=== PATIENT | male | born 1935 | race African-American/Black ===

== ENCOUNTER 2018-05-31 06:05 | Day surgery (SDC) | payer MEDICARE, OTHER ==
[2018-05-28 08:54] VITALS: BMI 30.2
[~2018-05-31 06:05] MED LIST: BUPIVACAINE HCL/PF (5 MG/ML) 30 ML VIAL IJ ONE
[2018-05-31] MEDS ORDERED: PROPOFOL 20 ML ONE (07:52)
[2018-05-31] MEDS ORDERED: LIDOCAINE HCL/PF 2% SDV 5ML VIAL ONE (07:52)
[2018-05-31] MEDS ORDERED: SEVOFLURANE 250 ML BTL ONE (07:56)
[2018-05-31] MEDS ORDERED: ceFAZolin SODIUM 1 GM VIAL ONE (08:10)
[2018-05-31] MEDS ORDERED: ceFAZolin SODIUM 1 GM VIAL IVPB ONE (08:36)
[2018-05-31] MEDS ORDERED: BUPIVACAINE HCL/PF 0.5% (5MG/ML) 10 ML VIAL ONE (08:38)
[2018-05-31] MEDS ORDERED: oxyCODONE HCL 5 MG TABLET PO PRN (09:19)
[2018-05-31] MEDS ORDERED: ACETAMINOPHEN 325 MG TABLET (FP) PO PRN (09:19)
[2018-05-31] MEDS ORDERED: ONDANSETRON 4 MG/2 ML VIAL IVPUSH PRN (09:19)
[2018-05-31] MEDS ORDERED: LACTATED RINGERS SOLUTION 1,000 ML IV SCH (09:30)
[2018-05-31 11:06] VITALS: TEMP 97.4
[2018-05-31 11:14] VITALS: BP 137/81; PULSE 60
--- NOTE | 2018-05-31 11:25 | OP ---
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
--- NOTE | 2018-05-31 21:56 | OP ---
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 PROCEDURE: Excision of residual invasive mass of squamous cell carcinoma site on glans penis and penoplasty. ATTENDING: Naye Schwab MD ANESTHESIA: General. DESCRIPTION OF OPERATION: The patient has a previous history of a squamous carcinoma which was found on excision of a penile mass. The finding of squamous cell carcinoma requires that an excision of a wide incision of the area of the malignancy is required. The patient understands that there is a high risk of disfigurement of the penis. The patient also understands that there is a risk that if he does not treat the neoplasm, more radical surgery may be required at a later date. The patient understands the risks and benefits and signs an informed consent. Patient was brought in the operating room, placed in supine position on the operating room table. Anesthesia and preoperative antibiotics were administered. The area of the glans penis on the dorsal aspect of the glans is examined. A wide incision of the previous operative site is performed. The incision is taken to a depth of the corpus spongiosum in the glans penis. This area is sent to Pathology for evaluation. Flaps are then raised in the glans penis in order to allow for a more adequate closure without causing curvature of the penis and possible obstruction of the urethra. The relaxing incision with the flaps allowed for a 2-layer closure to be performed with minimal distortion of the glans penis. There was no angulation of the urethra noted. The patient tolerated the procedure very well. No complications were noted. Patient will follow up in the office as an outpatient to evaluate the pathologic report. NAYE SCHWAB M.D. [id number]
--- NOTE | 2018-06-15 08:04 | PATH ---
Surgical Pathology Report Patient Name: REED GOMES [facility]. Rec. #: [id number] /Age/Gender: 1935 (Age: 83) / M Account: [id number] Location: [facility] SURGICAL Taken: 05/31/2018 Received: 05/31/2018 Reported: 06/01/2018 Physicians: Charles Nolasco Specimen(s) Received PENILE BASE MASS Clinical History Squamous cell carcinoma of the penis Final Diagnosis PENILE BASE MASS, EXCISIONAL BIOPSY: SQUAMOUS CELL CARCINOMA IN SITU. CARCINOMA IN SITU PRESENT AT THE MARGIN. Report on HPV and P16 studies to follow. Intradepartmental case reviewed with consensus on diagnosis. This case was discussed with Dr. Nolasco on June 01, 2018. Electronically Signed Kaitlin Handy M.D. 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 Immunostain performed and interpreted on this specimen at [place], [place] ([id number]) showing the squamous cell carcinoma in situ is positive for HPV high risk [id number], 18, 31 and 33, and negative for low risk HPV subtypes 6/11. Kaitlin Handy M.D. Gross Description Received in formalin labeled "mass penile base," is a 0.8 x 0.5 cm pickering, irregular, unoriented skin shave. No discrete epidermal lesions are identified grossly. The margin is inked green and the specimen is trisected and entirely submitted in one cassette. saudi/05/31/2018
== END 2018-05-31 11:55 | disposition home or self-care (01) ==
LOC: JASU-SURG 06:05
PROVIDERS: ATTEND Urology
PROC: 0JBC0ZZ Excision of Pelvic Region Subcutaneous Tissue and Fascia, Open Approach (ICD-10-PCS; principal; 2018-05-31 08:00)
DX: D07.4 Carcinoma in situ of penis (principal); I12.9 Hypertensive chronic kidney disease with stage 1 through stage 4 chronic kidney disease, or unspecified chronic kidney disease; E11.22 Type 2 diabetes mellitus with diabetic chronic kidney disease; N18.9 Chronic kidney disease, unspecified
CPT/HCPCS: 82962; 88307-TC; 94760

== ENCOUNTER 2019-03-16 09:10 | Inpatient (IN) | payer MEDICARE, OTHER ==
--- NOTE | 2019-03-16 10:36 | PDOC ---
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 Pt presents today with multiple complaints: 1) Neck pain - which is located in the midline of the cervical spine, has been present for more than 1 month, associated with no trauma, unable to rate pain, is associated with a click/or sound when he turns his head 2) Tongue pain/difficulty swallowing/abnormal taste in his mouth - symptoms have been present for more than 1 week. He has limited his po intake as a result. He denies drooling. Per , he does not have his bottom dentures and thinks that his symptoms may be the result of not having his dentures. Pt tells me that he can not eat (for example, this morning he had 2 crackers and tea, last night, he had yam) 3) Epigastric/stomach pain: pt actually points to the lower chest as painful, unable to describe the type of pain, symptoms have been present for more than 1 week (according to ). Pt denies vomiting, Pt denies diarrhea. He can not think of anything that makes his symptoms better or worse. Pt tells me that he has seen his PMD for these symptoms, but can not seem to get to the bottom of them PMH: HTN, DM PSH: penile mass removal x 2, pt also had a urostomy bag??? Meds: please see MAR ALL: NkDA Social: denies alcohol, drug, cigarette use ROS: GENERAL/CONSTITUTIONAL: No: fever, chills HEAD, EYES, EARS, NOSE AND THROAT: Yes: oral/mouth pain No: change in vision, ear pain, discharge CARDIOVASCULAR: No: chest pain, lightheadedness, palpitations, syncope RESPIRATORY: No: cough, shortness of breath GASTROINTESTINAL: Yes: epigastric pain No: nausea, vomiting, diarrhea GENITOURINARY: No: dysuria, hematuria, frequency, urgency, flank pain. MUSCULOSKELETAL: Yes: cervical spine tenderness No: back pain SKIN AND BREASTS: No: lesions, pallor, rash or easy bruising. NEUROLOGIC: No: headache, vertigo ENDOCRINE: No: unexplained weight gain or loss HEMATOLOGIC/LYMPHATIC: No: anemia, easy bleeding, swelling nodes. PE: GENERAL: The patient is in no acute distress, very poor historian. HEAD: Normal . EYES: PERRLA, EOMI, sclera anicteric, conjunctiva clear. ENT: Ears normal, nares patent, oropharynx clear without exudates. Canker sores noted on bottom lip, Moist mucous membranes. NECK: Normal range of motion, supple LUNGS: Breath sounds equal, clear to auscultation bilaterally. No wheezes, and no crackles. HEART:Regular rate and rhythm, normal S1 and S2 without murmur, rub or gallop. ABDOMEN: Soft, nontender, normoactive bowel sounds. No guarding, no rebound. EXTREMITIES: Normal range of motion, no edema. NEUROLOGICAL: Cranial nerves II through XII grossly intact. Normal speech. No focal neurological deficits. MUSCULOSKELETAL: Back non-tender to palpation, no CVA tenderness SKIN: Warm, Dry, normal turgor, no rashes or lesions noted. 03/16/19 11:09 03/16/19 11:10 Past History - Past Medical History Allergies/Adverse Reactions: Allergies Allergy/AdvReac Type Severity Reaction Status Date / Time No Known Allergies Allergy Verified 03/16/19 09:18 Home Medications: Ambulatory Orders Amlodipine Besylate 10 mg PO DAILY 05/28/18 Carvedilol 25 mg PO DAILY 05/28/18 Clonidine HCl 0.1 mg PO DAILY 05/28/18 Hydralazine HCl 50 mg PO BID 05/28/18 Losartan Potassium 100 mg PO DAILY 05/28/18 Tamsulosin HCl 0.4 mg PO DAILY 05/28/18 COPD: No Diabetes: Yes (not taking Januvia as prescribed) Disorders: Yes (BPH) HTN: Yes - Immunization History Immunization Up to Date: (UNKNOWN) - Suicide/Smoking/Psychosocial Hx Smoking History: Never smoked Have you smoked in the past 12 months: No If you are a former smoker, when did you quit?: Many years ago Hx Alcohol Use: No Drug/Substance Use Hx: No Substance Use Type: None Hx Substance Use Treatment: No *Physical Exam - Vital Signs Last Vital Signs Temp Pulse Resp BP Pulse Ox 98.0 F 72 18 98/54 L 100 03/16/19 09:20 03/16/19 09:20 03/16/19 09:20 03/16/19 09:20 03/16/19 09:20 ED Treatment Course - LABORATORY CBC & Chemistry Diagram: 03/17/19 06:00 03/17/19 06:00 - RADIOLOGY Radiology Studies Ordered: Category Date Time Status ABDOMEN & PELVIS CT WITH CONTR [CT] Stat CT Scan 03/16/19 10:[address] W/O CONTR [CT] Stat CT Scan 03/16/19 10:35 Ordered Medical Decision Making - Medical Decision Making 03/16/19 11:19 Pt presents to the ER with 1) limited history 2) very poor historian Will do: Basic labs EKG CXR CT abd Pt blood pressure notably low (Despite h/o HTN and 4 anti hypertensive agents) Will hydrate EKG: NSR rate of 66 bpm, axis nml, intervals nml, no st elevation or depression, t waves upright 03/16/19 11:48 Laboratory Tests 03/16/19 03/16/19 03/16/19 10:35 10:49 10:50 WBC 11.6 H Hgb 11.5 L Hct 34.3 L Plt Count 176 Sodium 135 L Potassium 4.1 Chloride 103 Carbon Dioxide 25 BUN 24 H Creatinine 1.4 H Random Glucose 116 H Magnesium 2.6 H AST 12 L ALT 26 Creatine Kinase 141 Troponin I < 0.02 Total Amylase 500 H Lipase 436 H pancreatitis noted on labs Pt states he does not drink alcohol CT pending 03/16/19 14:32 CT demonstrates constipation, small bilateral pleural effusions Pt continues to have epigastric pain CT C spine: no fracture Case reviewed with Dr Gibson Will plan to admit Will continue IV hydration *DC/Admit/Observation/Transfer Diagnosis at time of Disposition: Pancreatitis Qualifiers: Chronicity: acute Pancreatitis type: other Acute pancreatitis complication: unspecified Qualified Code(s): K85.80 - Other acute pancreatitis without necrosis or infection - Discharge Dispostion Condition at time of disposition: Stable Decision to Admit order: Yes - Referrals - Patient Instructions - Post Discharge Activity
[2019-03-16] MEDS ORDERED: SODIUM CHLORIDE 1,000 ML IV STA (10:50)
[2019-03-16 11:07] LABS: BASO % 0.9 % (0-2.0); HEMATOCRIT 34.3 % (35.4-49); HEMOGLOBIN 11.5 GM/dL (11.7-16.9); LYMPH % 12.3 % (8-40); MCHC 33.4 g/dl (32.0-35.9); MEAN CELL VOLUME 95.9 fl (80-96); MEAN PLT VOLUME 8.9 fl (7.5-11.1); MONO % 10.7 % (3.8-10.2); NEUT % 73.1 % (42.8-82.8); PLATELET COUNT 176 K/MM3 (134-434); RBC 3.58 M/mm3 (4.00-5.60); RDW 12.9 % (11.9-15.9); WHITE BLOOD COUNT 11.6 K/mm3 (4.0-10.0)
[2019-03-16 11:34] LABS: AMYLASE 500 U/L (25-115); LIPASE 436 U/L (73-393)
[2019-03-16 11:38] LABS: ALBUMIN 3.4 g/dl (3.4-5.0); ALK PHOS 80 U/L (45-117); ANION GAP 7 MMOL/L (8-16); BILIRUBIN,TOTAL 0.5 mg/dL (0.2-1); BLOOD UREA NITROGEN 24 mg/dL (7-18); CALCIUM 8.2 mg/dL (8.5-10.1); CHLORIDE 103 mmol/L (98-107); CO2 25 mmol/L (21-32); CREATININE 1.4 mg/dL (0.55-1.3); GLUCOSE,RANDOM 116 mg/dL (74-106); MAGNESIUM 2.6 mg/dL (1.8-2.4); POTASSIUM 4.1 mmol/L (3.5-5.1); SGOT/AST 12 U/L (15-37); SGPT/ALT 26 U/L (13-61); SODIUM 135 mmol/L (136-145)
[2019-03-16] MEDS ORDERED: FAMOTIDINE 20 MG/50 ML IVPB 20 MG/50 ML MG IVPB ONE ×2 (14:29→14:57)
--- NOTE | 2019-03-16 15:38 | EKG ---
Test Reason : Blood Pressure : / mmHG Vent. Rate : 066 BPM Atrial Rate : 066 BPM P-R Int : 186 ms QRS Dur : 082 ms QT Int : 392 ms P-R-T Axes : 055 -24 023 degrees QTc Int : 410 ms NORMAL SINUS RHYTHM WITH SINUS ARRHYTHMIA NORMAL ECG NO PREVIOUS ECGS AVAILABLE Confirmed by TIM SOLER MD ([id number]) on 03/16/2019 3:37:39 PM Referred By: Confirmed By:TIM SOLER MD
[2019-03-16 15:56] VITALS: BMI 27.3
[2019-03-16] MEDS ORDERED: PNEUMOC 13-VAL CONJ-DIP CRM/PF 0.5 ML DISP.SYRIN IM ONE (15:56)
--- NOTE | 2019-03-16 19:56 | HP ---
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 Pt presents today with multiple complaints: 1) Neck pain - which is located in the midline of the cervical spine, has been present for more than 1 month, associated with no trauma, unable to rate pain, is associated with a click/or sound when he turns his head 2) Tongue pain/difficulty swallowing/abnormal taste in his mouth - symptoms have been present for more than 1 week. He has limited his po intake as a result. - Smoking History Smoking history: Former smoker Have you smoked in the past 12 months: No If you are a former smoker, when did you quit?: Many years ago - Alcohol/Substance Use Hx Alcohol Use: No Home Medications - Allergies Allergies/Adverse Reactions: Allergies Allergy/AdvReac Type Severity Reaction Status Date / Time No Known Allergies Allergy Verified 03/16/19 09:18 - Home Medications Home Medications: Ambulatory Orders Amlodipine Besylate 10 mg PO DAILY 05/28/18 Carvedilol 25 mg PO DAILY 05/28/18 Clonidine HCl 0.1 mg PO DAILY 05/28/18 Hydralazine HCl 50 mg PO BID 05/28/18 Losartan Potassium 100 mg PO DAILY 05/28/18 Tamsulosin HCl 0.4 mg PO DAILY 05/28/18 Physical Examination Vital Signs: Vital Signs Temperature 98.6 F 03/16/19 15:49 Pulse Rate 78 03/16/19 15:49 Respiratory Rate 16 03/16/19 15:49 Blood Pressure 128/83 03/16/19 15:49 O2 Sat by Pulse Oximetry (%) 99 03/16/19 17:18 Constitutional: Yes: No Distress HENT: Yes: Atraumatic Neck: Yes: Supple Cardiovascular: Yes: Regular Rate and Rhythm Respiratory: Yes: CTA Bilaterally Gastrointestinal: Yes: Normal Bowel Sounds Extremities: Yes: WNL Neurological: Yes: Alert, Oriented Labs: CBC, BMP 03/16/19 10:50 03/16/19 10:35 Imaging - Results X-ray: Report Reviewed Problem List - Problems (1) Pancreatitis Assessment/Plan: npo ivf Code(s): K85.90 - ACUTE PANCREATITIS WITHOUT NECROSIS OR INFECTION, UNSP Qualifiers: Chronicity: acute Pancreatitis type: other Acute pancreatitis complication: unspecified Qualified Code(s): K85.80 - Other acute pancreatitis without necrosis or infection Assessment/Plan Laboratory Tests 03/16/19 03/16/19 03/16/19 10:35 10:49 10:50 WBC 11.6 H RBC 3.58 L Hgb 11.5 L Hct 34.3 L MCV 95.9 MCH 32.0 MCHC 33.4 RDW 12.9 Plt Count 176 MPV 8.9 Absolute Neuts (auto) 8.5 H Neutrophils % 73.1 Lymphocytes % 12.3 Monocytes % 10.7 H Eosinophils % 3.0 Basophils % 0.9 Nucleated RBC % 0 Sodium 135 L Potassium 4.1 Chloride 103 Carbon Dioxide 25 Anion Gap 7 L BUN 24 H Creatinine 1.4 H Creat Clearance w eGFR 48.52 Random Glucose 116 H Calcium 8.2 L Magnesium 2.6 H Total Bilirubin 0.5 AST 12 L ALT 26 Alkaline Phosphatase 80 Creatine Kinase 141 Troponin I < 0.02 Total Protein 7.0 Albumin 3.4 Total Amylase 500 H Lipase 436 H Active Medications Generic Name Dose Route Start Last Admin Trade Name Freq PRN Reason Stop Dose Admin Amlodipine Besylate 10 mg 03/17/19 10:00 03/17/19 09:27 Norvasc - PO 10 mg DAILY [place] Administration Carvedilol 25 mg 03/17/19 10:00 03/17/19 09:28 Coreg - PO 25 mg DAILY [place] Administration Clonidine 0.1 mg 03/17/19 10:00 03/17/19 09:28 Catapres - PO 0.1 mg DAILY [place] Administration Heparin Sodium (Porcine) 5,000 unit 03/16/19 22:00 03/17/19 09:28 Heparin - SQ 5,000 unit BID [place] Administration Hydralazine HCl 50 mg 03/16/19 22:00 03/17/19 09:28 Apresoline - PO 50 mg BID [place] Administration Sodium Chloride 1,000 mls @ 75 mls/hr 03/16/19 20:00 03/16/19 21:15 Normal Saline - IV 75 mls/hr ASDIR [place] Administration Losartan Potassium 100 mg 03/17/19 10:00 03/17/19 09:27 Cozaar - PO 100 mg DAILY [place] Administration Nystatin 500,000 units 03/17/19 18:00 Nystatin Oral Suspension - PO 03/20/19 17:59 Q6HPO [place] Pantoprazole Sodium 40 mg 03/17/19 10:00 03/17/19 09:28 Protonix Iv IVPUSH 40 mg DAILY [place] Administration Tamsulosin HCl 0.4 mg 03/17/19 08:30 03/17/19 09:28 Flomax - PO 0.4 mg DAILY@0830 [place] Administration
[2019-03-16] MEDS: hydrALAZINE HCL 50 MG TABLET (FP) PO SCH (21:14)
[2019-03-16] MEDS: HEPARIN NA (PORCINE) 5,000 UNITS/ML 1ML VIAL SQ SCH (21:14)
[2019-03-16] MEDS: SODIUM CHLORIDE 1,000 ML IV SCH (21:15)
[2019-03-17 06:31] LABS: BASO % 0.8 % (0-2.0); EOS % 2.7 % (0-4.5); HEMATOCRIT 35.2 % (35.4-49); HEMOGLOBIN 11.8 GM/dL (11.7-16.9); LYMPH % 20.1 % (8-40); MCH 31.9 pg (25.7-33.7); MCHC 33.4 g/dl (32.0-35.9); MEAN CELL VOLUME 95.5 fl (80-96); MEAN PLT VOLUME 8.6 fl (7.5-11.1); MONO % 12.7 % (3.8-10.2); NEUT % 63.7 % (42.8-82.8); PLATELET COUNT 165 K/MM3 (134-434); RBC 3.69 M/mm3 (4.00-5.60); RDW 12.9 % (11.9-15.9)
[2019-03-17 07:05] LABS: ALK PHOS 74 U/L (45-117); AMYLASE 530 U/L (25-115); ANION GAP 7 MMOL/L (8-16); BILIRUBIN,TOTAL 0.5 mg/dL (0.2-1); BLOOD UREA NITROGEN 18 mg/dL (7-18); CALCIUM 8.1 mg/dL (8.5-10.1); CHLORIDE 109 mmol/L (98-107); CO2 25 mmol/L (21-32); CREATININE 1.2 mg/dL (0.55-1.3); GLUCOSE,RANDOM 86 mg/dL (74-106); LIPASE 340 U/L (73-393); POTASSIUM 4.3 mmol/L (3.5-5.1); SGOT/AST 14 U/L (15-37); SGPT/ALT 20 U/L (13-61); SODIUM 140 mmol/L (136-145); TOT PROT 6.3 g/dl (6.4-8.2)
[2019-03-17] MEDS: LOSARTAN POTASSIUM 50 MG TABLET (FP) PO SCH (09:27)
[2019-03-17] MEDS: amLODIPine BESYLATE 10 MG TABLET (FP) PO SCH (09:27)
[2019-03-17] MEDS: TAMSULOSIN HCL 0.4 MG CAP PO SCH (09:28)
[2019-03-17] MEDS: PANTOPRAZOLE SODIUM 40 MG VIAL IVPUSH SCH (09:28)
[2019-03-17] MEDS: HEPARIN NA (PORCINE) 5,000 UNITS/ML 1ML VIAL SQ SCH ×2 (09:28→22:09)
[2019-03-17] MEDS: hydrALAZINE HCL 50 MG TABLET (FP) PO SCH ×2 (09:28→22:09)
[2019-03-17] MEDS: CARVEDILOL 25 MG TABLET (FP) PO SCH (09:28)
[2019-03-17] MEDS: cloNIDine HCL 0.1 MG TABLET PO SCH (09:28)
--- NOTE | 2019-03-17 15:46 | CON.GI ---
Consult Consult Specialty:: GI Referred by:: Dr. Gibson Reason for Consultation:: Abdominal pain - History of Present Illness Chief Complaint: Patient points to lower chest/upper abdomen and states he has had pain there History of Present Illness: 84M admitted for evaluation of multiple pain complaints: neck, tongue, lower chest / upper abdomen. When I asked him why he was here, he pointed to his lower chest and said he has been having pain there for quite some time. He is very vague regarding his complaints. He denies constipation. There has been no reported rectal bleeding. He denies dysphagia/odynopjhagia. Amylas and lipase were nildly elevated on admission. He has been npo. - History Source History Provided By: Patient Limitations to Obtaining History: Poor Historian - Past Medical History Cardio/Vascular: Yes: HTN Renal/: Yes: Cancer (Penile cancer) Endocrine: Yes: Diabetes Mellitus - Past Surgical History Additional Surgical History: Prostate surgery, penile surgery - Alcohol/Substance Use Hx Alcohol Use: No History of Substance Use: reports: None - Smoking History Smoking history: Never smoked Have you smoked in the past 12 months: No If you are a former smoker, when did you quit?: Many years ago - Social History Usual Living Arrangement: With Spouse ADL: Independent Place of : Other ([place]) History of Recent Travel: No Home Medications - Allergies Allergies/Adverse Reactions: Allergies Allergy/AdvReac Type Severity Reaction Status Date / Time No Known Allergies Allergy Verified 03/16/19 09:18 - Home Medications Home Medications: Ambulatory Orders Amlodipine Besylate 10 mg PO DAILY 05/28/18 Carvedilol 25 mg PO DAILY 05/28/18 Clonidine HCl 0.1 mg PO DAILY 05/28/18 Hydralazine HCl 50 mg PO BID 05/28/18 Losartan Potassium 100 mg PO DAILY 05/28/18 Tamsulosin HCl 0.4 mg PO DAILY 05/28/18 Family Disease History - Family Disease History Other Family History: Patient vague about family history Review of Systems - Review of Systems Constitutional: denies: Fever HENT: reports: Other (Tongue pain) Cardiovascular: reports: Chest Pain (Lower) Gastrointestinal: reports: Abdominal Pain (upper). denies: Constipation, Diarrhea, Rectal Bleeding, Vomiting Physical Exam-GI Vital Signs: Vital Signs Temperature 98.5 F 03/17/19 15:00 Pulse Rate 72 03/17/19 15:00 Respiratory Rate 19 03/17/19 15:00 Blood Pressure 124/74 03/17/19 15:00 O2 Sat by Pulse Oximetry (%) 99 03/16/19 21:00 Constitutional: Yes: Calm Eyes: No: Sclera Icterus Neck: Yes: Other (white coating of tongue. Unable to visualize posterior oropharynx) Cardiovascular: Yes: Regular Rate and Rhythm, Murmur (2/6 systolic RSB) Respiratory: Yes: CTA Bilaterally Gastrointestinal Inspection: Yes: Scars (vertical suprapubic surgical scar) ...Auscultate: Yes: Normoactive Bowel Sounds ...Palpate: Yes: Soft. No: Guarding, Hepatomegaly, Splenomegaly, Tenderness ...Percussion: No: Tympanitic ...Rectal Exam: Yes: Other (No external lesions, no masses, copious light brown formed stool in rectal vault, guaiac negative) Edema: No (No LE edema) Neurological: Yes: Alert Labs: CBC, BMP 03/17/19 06:00 03/17/19 06:00 Hepatic Panel Total Bilirubin 0.5 mg/dL (0.2-1) 03/17/19 06:00 AST 14 U/L (15-37) L 03/17/19 06:00 ALT 20 U/L (13-61) 03/17/19 06:00 Alkaline Phosphatase 74 U/L (45-117) 03/17/19 06:00 Albumin 3.0 g/dl (3.4-5.0) L 03/17/19 06:00 Laboratory Tests 03/16/19 03/17/19 10:49 06:00 Total Amylase 500 H 530 H Lipase 436 H 340 Imaging - Results Cat Scan: Report Reviewed, Image Reviewed Problem List - Problems (1) Abdominal pain Assessment/Plan: Patient admitted with diagnosis of pancreatitis. Not typical pain location or description for pancreatitis. pain predominantly lower chest / upper abdomen and non-reproducible. Advise: Clear liquids UGIS series for AM Non contrast MRCP to evaluated elevated Amylase/Lipase Nystatin swish and swallow: ? oral daniel Obtain further records regarding recent evaluation at [facility] and any information patient's PMD may be able to give. Code(s): R10.9 - UNSPECIFIED ABDOMINAL PAIN
--- NOTE | 2019-03-17 17:28 | PN ---
Progress Note, Physician - Current Medication List Current Medications: Active Medications Amlodipine Besylate (Norvasc -) 10 mg PO DAILY [facility] Last Admin: 03/17/19 09:27 Dose: 10 mg Carvedilol (Coreg -) 25 mg PO DAILY [facility] Last Admin: 03/17/19 09:28 Dose: 25 mg Clonidine (Catapres -) 0.1 mg PO DAILY [facility] Last Admin: 03/17/19 09:28 Dose: 0.1 mg Heparin Sodium (Porcine) (Heparin -) 5,000 unit SQ BID [facility] Last Admin: 03/17/19 09:28 Dose: 5,000 unit Hydralazine HCl (Apresoline -) 50 mg PO BID [facility] Last Admin: 03/17/19 09:28 Dose: 50 mg Sodium Chloride (Normal Saline -) 1,000 mls @ 75 mls/hr IV ASDIR [facility] Last Admin: 03/16/19 21:15 Dose: 75 mls/hr Losartan Potassium (Cozaar -) 100 mg PO DAILY [facility] Last Admin: 03/17/19 09:27 Dose: 100 mg Nystatin (Nystatin Oral Suspension -) 500,000 units PO Q6HPO [facility] Stop: 03/20/19 17:59 Pantoprazole Sodium (Protonix Iv) 40 mg IVPUSH DAILY [facility] Last Admin: 03/17/19 09:28 Dose: 40 mg Tamsulosin HCl (Flomax -) 0.4 mg PO DAILY@0830 [facility] Last Admin: 03/17/19 09:28 Dose: 0.4 mg - Objective Vital Signs: Vital Signs Temperature 99 F 03/17/19 16:58 Pulse Rate 81 03/17/19 16:58 Respiratory Rate 20 03/17/19 16:58 Blood Pressure 111/70 03/17/19 16:58 O2 Sat by Pulse Oximetry (%) 99 03/16/19 21:00 Constitutional: Yes: No Distress HENT: Yes: Atraumatic Neck: Yes: Supple Cardiovascular: Yes: Regular Rate and Rhythm Respiratory: Yes: CTA Bilaterally Gastrointestinal: Yes: Normal Bowel Sounds Extremities: Yes: WNL Edema: No Peripheral Pulses WNL: Yes Neurological: Yes: Alert, Oriented Labs: CBC, BMP 03/17/19 06:00 03/17/19 06:00 Problem List - Problems (1) Pancreatitis Assessment/Plan: npo ivf Code(s): K85.90 - ACUTE PANCREATITIS WITHOUT NECROSIS OR INFECTION, UNSP Qualifiers: Chronicity: acute Pancreatitis type: other Acute pancreatitis complication: unspecified Qualified Code(s): K85.80 - Other acute pancreatitis without necrosis or infection
[2019-03-17] MEDS: NYSTATIN 500,000 UNITS/5 ML SUSPENSION PO SCH (17:30)
[2019-03-17] MEDS: SODIUM CHLORIDE 1,000 ML IV SCH (17:39)
[2019-03-18] MEDS: NYSTATIN 500,000 UNITS/5 ML SUSPENSION PO SCH ×5 (05:49→23:35)
--- NOTE | 2019-03-18 10:47 | PN.GI ---
GI Progress Note Subjective: No acute events Had MRI last night, UGIS this morning States feeling "Not too bad" - Objective Vital Signs: Vital Signs Temperature 98.1 F 03/18/19 06:00 Pulse Rate 83 03/18/19 06:00 Respiratory Rate 20 03/18/19 06:00 Blood Pressure 148/78 03/18/19 06:00 O2 Sat by Pulse Oximetry (%) 99 03/16/19 21:00 Constitutional: Calm Eyes: No: Sclera Icterus Cardiovascular: Yes: Regular Rate and Rhythm Respiratory: Yes: CTA Bilaterally Gastrointestinal Inspection: No: Distention ...Auscultate: Yes: Normoactive Bowel Sounds ...Palpate: Yes: Soft. No: Hepatomegaly, Splenomegaly, Tenderness ...Percussion: No: Tympanitic Edema: No (No LE edema) Labs: No labs ordered today Problem List - Problems (1) Abdominal pain Assessment/Plan: Clinically imporoved Follow-up MRCP and UGIS Repeat labs Advance diet Nystatin swish and swallow Code(s): R10.9 - UNSPECIFIED ABDOMINAL PAIN
[2019-03-18] MEDS: TAMSULOSIN HCL 0.4 MG CAP PO SCH (11:03)
[2019-03-18] MEDS: CARVEDILOL 25 MG TABLET (FP) PO SCH (11:03)
[2019-03-18] MEDS: amLODIPine BESYLATE 10 MG TABLET (FP) PO SCH (11:03)
[2019-03-18] MEDS: hydrALAZINE HCL 50 MG TABLET (FP) PO SCH ×2 (11:04→21:37)
[2019-03-18] MEDS: LOSARTAN POTASSIUM 50 MG TABLET (FP) PO SCH (11:04)
[2019-03-18] MEDS: HEPARIN NA (PORCINE) 5,000 UNITS/ML 1ML VIAL SQ SCH ×2 (11:04→21:37)
[2019-03-18] MEDS: cloNIDine HCL 0.1 MG TABLET PO SCH (11:09)
--- NOTE | 2019-03-18 11:15 | PN ---
Progress Note, Physician History of Present Illness: feeling better - Current Medication List Current Medications: Active Medications Amlodipine Besylate (Norvasc -) 10 mg PO DAILY [facility] Last Admin: 03/18/19 11:03 Dose: 10 mg Carvedilol (Coreg -) 25 mg PO DAILY [facility] Last Admin: 03/18/19 11:03 Dose: 25 mg Clonidine (Catapres -) 0.1 mg PO DAILY [facility] Last Admin: 03/18/19 11:09 Dose: 0.1 mg Heparin Sodium (Porcine) (Heparin -) 5,000 unit SQ BID [facility] Last Admin: 03/18/19 11:04 Dose: 5,000 unit Hydralazine HCl (Apresoline -) 50 mg PO BID [facility] Last Admin: 03/18/19 11:04 Dose: 50 mg Sodium Chloride (Normal Saline -) 1,000 mls @ 75 mls/hr IV ASDIR [facility] Last Admin: 03/17/19 17:39 Dose: 75 mls/hr Losartan Potassium (Cozaar -) 100 mg PO DAILY [facility] Last Admin: 03/18/19 11:04 Dose: 100 mg Nystatin (Nystatin Oral Suspension -) 500,000 units PO Q6HPO [facility] Stop: 03/20/19 17:59 Last Admin: 03/18/19 05:49 Dose: 500,000 units Pantoprazole Sodium (Protonix -) 20 mg PO DAILY [facility] Tamsulosin HCl (Flomax -) 0.4 mg PO DAILY@0830 [facility] Last Admin: 03/18/19 11:03 Dose: 0.4 mg - Objective Vital Signs: Vital Signs Temperature 98.1 F 03/18/19 06:00 Pulse Rate 83 03/18/19 06:00 Respiratory Rate 20 03/18/19 06:00 Blood Pressure 148/78 03/18/19 06:00 O2 Sat by Pulse Oximetry (%) 99 03/16/19 21:00 Constitutional: Yes: No Distress HENT: Yes: Atraumatic Neck: Yes: Supple Cardiovascular: Yes: Regular Rate and Rhythm Respiratory: Yes: CTA Bilaterally Gastrointestinal: Yes: Normal Bowel Sounds Extremities: Yes: WNL Edema: No Peripheral Pulses WNL: Yes Neurological: Yes: Alert, Oriented Labs: CBC, BMP 03/17/19 06:00 03/17/19 06:00 Problem List - Problems (1) Pancreatitis Assessment/Plan: on Na controlled diet fu enzymes in am Code(s): K85.90 - ACUTE PANCREATITIS WITHOUT NECROSIS OR INFECTION, UNSP Qualifiers: Chronicity: acute Pancreatitis type: other Acute pancreatitis complication: unspecified Qualified Code(s): K85.80 - Other acute pancreatitis without necrosis or infection
[2019-03-18 12:01] LABS: BASO % 0.9 % (0-2.0); EOS % 2.1 % (0-4.5); HEMOGLOBIN 12.8 GM/dL (11.7-16.9); LYMPH % 19.5 % (8-40); MCH 31.8 pg (25.7-33.7); MCHC 32.8 g/dl (32.0-35.9); MEAN PLT VOLUME 8.5 fl (7.5-11.1); MONO % 11.7 % (3.8-10.2); NEUT % 65.8 % (42.8-82.8); PLATELET COUNT 192 K/MM3 (134-434); RBC 4.02 M/mm3 (4.00-5.60); RDW 12.9 % (11.9-15.9); WHITE BLOOD COUNT 8.6 K/mm3 (4.0-10.0)
[2019-03-18] MEDS: SODIUM CHLORIDE 1,000 ML IV SCH ×3 (12:32→21:38)
[2019-03-18] MEDS: PANTOPRAZOLE SODIUM 40 MG VIAL IVPUSH SCH (12:32)
[2019-03-18 12:35] LABS: ALBUMIN 3.4 g/dl (3.4-5.0); ALK PHOS 84 U/L (45-117); ANION GAP 9 MMOL/L (8-16); BILIRUBIN,TOTAL 0.5 mg/dL (0.2-1); BLOOD UREA NITROGEN 15 mg/dL (7-18); CALCIUM 8.6 mg/dL (8.5-10.1); CHLORIDE 105 mmol/L (98-107); CO2 24 mmol/L (21-32); CREATININE 1.1 mg/dL (0.55-1.3); GLUCOSE,RANDOM 85 mg/dL (74-106); POTASSIUM 4.4 mmol/L (3.5-5.1); SGOT/AST 16 U/L (15-37); SGPT/ALT 23 U/L (13-61); SODIUM 138 mmol/L (136-145); TOT PROT 7.1 g/dl (6.4-8.2)
[2019-03-18 17:50] LABS: AMYLASE 645 U/L (25-115); LIPASE 272 U/L (73-393)
[2019-03-19] MEDS: SODIUM CHLORIDE 1,000 ML IV SCH ×2 (03:40→16:42)
[2019-03-19] MEDS: NYSTATIN 500,000 UNITS/5 ML SUSPENSION PO SCH ×3 (06:07→17:06)
[2019-03-19 06:25] LABS: BASO % 0.7 % (0-2.0); EOS % 2.4 % (0-4.5); HEMATOCRIT 35.8 % (35.4-49); HEMOGLOBIN 11.8 GM/dL (11.7-16.9); LYMPH % 23.6 % (8-40); MCH 31.6 pg (25.7-33.7); MEAN CELL VOLUME 95.6 fl (80-96); MEAN PLT VOLUME 8.4 fl (7.5-11.1); MONO % 12.8 % (3.8-10.2); NEUT % 60.5 % (42.8-82.8); PLATELET COUNT 191 K/MM3 (134-434); RBC 3.74 M/mm3 (4.00-5.60); RDW 12.8 % (11.9-15.9); WHITE BLOOD COUNT 8.3 K/mm3 (4.0-10.0)
[2019-03-19 06:52] LABS: ALK PHOS 77 U/L (45-117); AMYLASE 534 U/L (25-115); ANION GAP 10 MMOL/L (8-16); BILIRUBIN,TOTAL 0.4 mg/dL (0.2-1); BLOOD UREA NITROGEN 16 mg/dL (7-18); CALCIUM 8.1 mg/dL (8.5-10.1); CHLORIDE 107 mmol/L (98-107); CO2 23 mmol/L (21-32); CREATININE 1.1 mg/dL (0.55-1.3); GLUCOSE,RANDOM 87 mg/dL (74-106); LIPASE 411 U/L (73-393); POTASSIUM 3.8 mmol/L (3.5-5.1); SGOT/AST 21 U/L (15-37); SGPT/ALT 21 U/L (13-61); SODIUM 140 mmol/L (136-145); TOT PROT 6.3 g/dl (6.4-8.2)
[2019-03-19] MEDS: LOSARTAN POTASSIUM 50 MG TABLET (FP) PO SCH (09:38)
[2019-03-19] MEDS: CARVEDILOL 25 MG TABLET (FP) PO SCH (09:38)
[2019-03-19] MEDS: PANTOPRAZOLE 20 MG TABLET (FP) PO SCH (09:38)
[2019-03-19] MEDS: cloNIDine HCL 0.1 MG TABLET PO SCH (09:38)
[2019-03-19] MEDS: amLODIPine BESYLATE 10 MG TABLET (FP) PO SCH (09:39)
[2019-03-19] MEDS: hydrALAZINE HCL 50 MG TABLET (FP) PO SCH ×2 (09:39→21:37)
[2019-03-19] MEDS: HEPARIN NA (PORCINE) 5,000 UNITS/ML 1ML VIAL SQ SCH ×2 (09:39→21:38)
[2019-03-19] MEDS: TAMSULOSIN HCL 0.4 MG CAP PO SCH (09:39)
--- NOTE | 2019-03-19 13:21 | PN ---
Progress Note, Physician - Current Medication List Current Medications: Active Medications Amlodipine Besylate (Norvasc -) 10 mg PO DAILY [facility] Last Admin: 03/19/19 09:39 Dose: 10 mg Carvedilol (Coreg -) 25 mg PO DAILY [facility] Last Admin: 03/19/19 09:38 Dose: 25 mg Clonidine (Catapres -) 0.1 mg PO DAILY [facility] Last Admin: 03/19/19 09:38 Dose: 0.1 mg Heparin Sodium (Porcine) (Heparin -) 5,000 unit SQ BID [facility] Last Admin: 03/19/19 09:39 Dose: 5,000 unit Hydralazine HCl (Apresoline -) 50 mg PO BID [facility] Last Admin: 03/19/19 09:39 Dose: 50 mg Sodium Chloride (Normal Saline -) 1,000 mls @ 75 mls/hr IV ASDIR [facility] Last Admin: 03/19/19 03:40 Dose: 75 mls/hr Losartan Potassium (Cozaar -) 100 mg PO DAILY [facility] Last Admin: 03/19/19 09:38 Dose: 100 mg Nystatin (Nystatin Oral Suspension -) 500,000 units PO Q6HPO [facility] Stop: 03/20/19 17:59 Last Admin: 03/19/19 11:47 Dose: 500,000 units Pantoprazole Sodium (Protonix -) 20 mg PO DAILY [facility] Last Admin: 03/19/19 09:38 Dose: 20 mg Tamsulosin HCl (Flomax -) 0.4 mg PO DAILY@0830 [facility] Last Admin: 03/19/19 09:39 Dose: 0.4 mg - Objective Vital Signs: Vital Signs Temperature 98.3 F 03/19/19 10:00 Pulse Rate 76 03/19/19 10:00 Respiratory Rate 20 03/19/19 10:00 Blood Pressure 124/78 03/19/19 10:00 O2 Sat by Pulse Oximetry (%) 98 03/19/19 09:00 Constitutional: Yes: No Distress HENT: Yes: Atraumatic Neck: Yes: Supple Cardiovascular: Yes: Regular Rate and Rhythm Respiratory: Yes: CTA Bilaterally Gastrointestinal: Yes: Normal Bowel Sounds Extremities: Yes: WNL Edema: No Neurological: Yes: Alert, Oriented Labs: CBC, BMP 03/19/19 06:00 03/19/19 06:00 Problem List - Problems (1) Pancreatitis Assessment/Plan: on Na controlled diet fu enzymes in am Code(s): K85.90 - ACUTE PANCREATITIS WITHOUT NECROSIS OR INFECTION, UNSP Qualifiers: Chronicity: acute Pancreatitis type: other Acute pancreatitis complication: unspecified Qualified Code(s): K85.80 - Other acute pancreatitis without necrosis or infection
--- NOTE | 2019-03-19 14:01 | PN.GI ---
GI Progress Note Subjective: coverage for Dr Man tolerated diet, no nausea, no vomiting UGIS--c/w with reflux, no massess MRI -- no CBD stones, no pancreatic neoplasm CT-- fecal retention - Objective Vital Signs: Vital Signs Temperature 98.3 F 03/19/19 10:00 Pulse Rate 76 03/19/19 10:00 Respiratory Rate 20 03/19/19 10:00 Blood Pressure 124/78 03/19/19 10:00 O2 Sat by Pulse Oximetry (%) 98 03/19/19 09:00 Constitutional: Well Nourished Eyes: Yes: Conjunctiva Clear HENT: Yes: Atraumatic Neck: Yes: Supple Respiratory: Yes: CTA Bilaterally ...Auscultate: Yes: Normoactive Bowel Sounds ...Palpate: Yes: Soft. No: Firm/Rigid, Guarding, Hepatomegaly, Mass, Pulsatile Mass, Splenomegaly, Tenderness, Tenderness, Epigastium ...Percussion: Yes: Tympanitic Labs: CBC, BMP 03/19/19 06:00 03/19/19 06:00 Problem List - Problems (1) Abdominal pain Assessment/Plan: associated with elevated lipase etiology unclear R>Famotidine 40mg daily if pain is persistent will need EGD to r/o PUD, malignancy Code(s): R10.9 - UNSPECIFIED ABDOMINAL PAIN
[2019-03-19] MEDS ORDERED: POLYETHYLENE GLYCOL 3350 119 GM BTL PO ONE (14:02)
[2019-03-19] MEDS ORDERED: INSULIN (NOVOLOG) ASPART 100 UNITS/ML 10ML VIAL ONE (16:50)
[2019-03-19] MEDS: RANITIDINE HCL 150 MG TABLET (FP) PO SCH (21:37)
[2019-03-20] MEDS: NYSTATIN 500,000 UNITS/5 ML SUSPENSION PO SCH ×3 (00:18→11:36)
[2019-03-20] MEDS: SODIUM CHLORIDE 1,000 ML IV SCH (06:12)
[2019-03-20] MEDS: LOSARTAN POTASSIUM 50 MG TABLET (FP) PO SCH (09:18)
[2019-03-20] MEDS: RANITIDINE HCL 150 MG TABLET (FP) PO SCH ×2 (09:18→21:29)
[2019-03-20] MEDS: TAMSULOSIN HCL 0.4 MG CAP PO SCH (09:18)
[2019-03-20] MEDS: HEPARIN NA (PORCINE) 5,000 UNITS/ML 1ML VIAL SQ SCH ×2 (09:18→21:30)
[2019-03-20] MEDS: CARVEDILOL 25 MG TABLET (FP) PO SCH (09:18)
[2019-03-20] MEDS: amLODIPine BESYLATE 10 MG TABLET (FP) PO SCH (09:19)
[2019-03-20] MEDS: cloNIDine HCL 0.1 MG TABLET PO SCH (09:19)
[2019-03-20] MEDS: hydrALAZINE HCL 50 MG TABLET (FP) PO SCH ×2 (09:19→21:29)
[2019-03-20] MEDS: PANTOPRAZOLE 20 MG TABLET (FP) PO SCH (09:19)
--- NOTE | 2019-03-20 21:45 | PN ---
Progress Note, Physician History of Present Illness: Pt tolerating diet - Current Medication List Current Medications: Active Medications Amlodipine Besylate (Norvasc -) 10 mg PO DAILY [facility] Last Admin: 03/20/19 09:19 Dose: 10 mg Carvedilol (Coreg -) 25 mg PO DAILY [facility] Last Admin: 03/20/19 09:18 Dose: 25 mg Clonidine (Catapres -) 0.1 mg PO DAILY [facility] Last Admin: 03/20/19 09:19 Dose: 0.1 mg Heparin Sodium (Porcine) (Heparin -) 5,000 unit SQ BID [facility] Last Admin: 03/20/19 21:30 Dose: 5,000 unit Hydralazine HCl (Apresoline -) 50 mg PO BID [facility] Last Admin: 03/20/19 21:29 Dose: 50 mg Losartan Potassium (Cozaar -) 100 mg PO DAILY [facility] Last Admin: 03/20/19 09:18 Dose: 100 mg Pantoprazole Sodium (Protonix -) 20 mg PO DAILY [facility] Last Admin: 03/20/19 09:19 Dose: 20 mg Ranitidine HCl (Zantac -) 150 mg PO BID [facility] Last Admin: 03/20/19 21:29 Dose: 150 mg Tamsulosin HCl (Flomax -) 0.4 mg PO DAILY@0830 [facility] Last Admin: 03/20/19 09:18 Dose: 0.4 mg - Objective Vital Signs: Vital Signs Temperature 98 F 03/20/19 10:00 Pulse Rate 78 03/20/19 10:00 Respiratory Rate 18 03/20/19 10:00 Blood Pressure 112/58 L 03/20/19 10:00 O2 Sat by Pulse Oximetry (%) 98 03/20/19 09:00 Constitutional: Yes: No Distress Neck: Yes: WNL, Supple Cardiovascular: Yes: WNL, Regular Rate and Rhythm Respiratory: Yes: WNL, Regular, CTA Bilaterally Gastrointestinal: Yes: WNL, Normal Bowel Sounds, Soft Edema: No Labs: CBC, BMP 03/19/19 06:00 03/19/19 06:00 Problem List - Problems (1) Pancreatitis Assessment/Plan: Tolerating diet Check labs in am Code(s): K85.90 - ACUTE PANCREATITIS WITHOUT NECROSIS OR INFECTION, UNSP Qualifiers: Chronicity: acute Pancreatitis type: other Acute pancreatitis complication: unspecified Qualified Code(s): K85.80 - Other acute pancreatitis without necrosis or infection (2) HTN (hypertension) Assessment/Plan: BP stable Cont antihypertensives Code(s): I10 - ESSENTIAL (PRIMARY) HYPERTENSION (3) BPH (benign prostatic hyperplasia) Code(s): N40.0 - BENIGN PROSTATIC HYPERPLASIA WITHOUT LOWER URINRY TRACT SYMP
[2019-03-21 08:18] LABS: ALBUMIN 3.4 g/dl (3.4-5.0); ALK PHOS 84 U/L (45-117); AMYLASE 321 U/L (25-115); ANION GAP 11 MMOL/L (8-16); BILIRUBIN,TOTAL 0.2 mg/dL (0.2-1); BLOOD UREA NITROGEN 16 mg/dL (7-18); CALCIUM 8.6 mg/dL (8.5-10.1); CHLORIDE 103 mmol/L (98-107); CO2 25 mmol/L (21-32); CREATININE 1.3 mg/dL (0.55-1.3); GLUCOSE,RANDOM 109 mg/dL (74-106); LIPASE 664 U/L (73-393); POTASSIUM 3.9 mmol/L (3.5-5.1); SGOT/AST 42 U/L (15-37); SGPT/ALT 51 U/L (13-61); SODIUM 139 mmol/L (136-145); TOT PROT 7.1 g/dl (6.4-8.2)
[2019-03-21] MEDS: TAMSULOSIN HCL 0.4 MG CAP PO SCH (08:44)
[2019-03-21] MEDS: cloNIDine HCL 0.1 MG TABLET PO SCH (09:57)
[2019-03-21] MEDS: CARVEDILOL 25 MG TABLET (FP) PO SCH (09:57)
[2019-03-21] MEDS: LOSARTAN POTASSIUM 50 MG TABLET (FP) PO SCH (09:57)
[2019-03-21] MEDS: hydrALAZINE HCL 50 MG TABLET (FP) PO SCH ×2 (09:57→22:12)
[2019-03-21] MEDS: RANITIDINE HCL 150 MG TABLET (FP) PO SCH ×2 (09:58→22:12)
[2019-03-21] MEDS: amLODIPine BESYLATE 10 MG TABLET (FP) PO SCH (09:59)
[2019-03-21] MEDS: PANTOPRAZOLE 20 MG TABLET (FP) PO SCH (09:59)
[2019-03-21] MEDS: HEPARIN NA (PORCINE) 5,000 UNITS/ML 1ML VIAL SQ SCH ×2 (10:00→22:12)
--- NOTE | 2019-03-21 12:06 | PN ---
Progress Note (short form) - Note Progress Note: Patient seen and examined labs reviewed Sitting up in bed, tolerating PO Denies abdominal pain today! Imaging reviewed No clear etiology for abdominal pain, but seems to have resolved Can continue famotidine
--- NOTE | 2019-03-21 17:34 | PN ---
Progress Note, Physician History of Present Illness: feeling better - Current Medication List Current Medications: Active Medications Amlodipine Besylate (Norvasc -) 10 mg PO DAILY [facility] Last Admin: 03/21/19 09:59 Dose: 10 mg Carvedilol (Coreg -) 25 mg PO DAILY [facility] Last Admin: 03/21/19 09:57 Dose: 25 mg Clonidine (Catapres -) 0.1 mg PO DAILY [facility] Last Admin: 03/21/19 09:57 Dose: 0.1 mg Heparin Sodium (Porcine) (Heparin -) 5,000 unit SQ BID [facility] Last Admin: 03/21/19 10:00 Dose: 5,000 unit Hydralazine HCl (Apresoline -) 50 mg PO BID [facility] Last Admin: 03/21/19 09:57 Dose: 50 mg Losartan Potassium (Cozaar -) 100 mg PO DAILY [facility] Last Admin: 03/21/19 09:57 Dose: 100 mg Pantoprazole Sodium (Protonix -) 20 mg PO DAILY [facility] Last Admin: 03/21/19 09:59 Dose: 20 mg Ranitidine HCl (Zantac -) 150 mg PO BID [facility] Last Admin: 03/21/19 09:58 Dose: 150 mg Tamsulosin HCl (Flomax -) 0.4 mg PO DAILY@0830 [facility] Last Admin: 03/21/19 08:44 Dose: 0.4 mg - Objective Vital Signs: Vital Signs Temperature 98.0 F 03/21/19 14:04 Pulse Rate 60 03/21/19 14:04 Respiratory Rate 18 03/21/19 14:04 Blood Pressure 106/63 03/21/19 14:04 O2 Sat by Pulse Oximetry (%) 98 03/21/19 09:00 Constitutional: Yes: No Distress HENT: Yes: Atraumatic Neck: Yes: Supple Cardiovascular: Yes: Regular Rate and Rhythm Respiratory: Yes: CTA Bilaterally Gastrointestinal: Yes: Normal Bowel Sounds Extremities: Yes: WNL Edema: No Neurological: Yes: Alert, Oriented Labs: CBC, BMP 03/19/19 06:00 03/21/19 06:30 Problem List - Problems (1) Pancreatitis Assessment/Plan: on Na controlled diet fu enzymes in am...elevated Code(s): K85.90 - ACUTE PANCREATITIS WITHOUT NECROSIS OR INFECTION, UNSP Qualifiers: Chronicity: acute Pancreatitis type: other Acute pancreatitis complication: unspecified Qualified Code(s): K85.80 - Other acute pancreatitis without necrosis or infection
[2019-03-22 08:50] LABS: AMYLASE 282 U/L (25-115); LIPASE 492 U/L (73-393)
[2019-03-22] MEDS: TAMSULOSIN HCL 0.4 MG CAP PO SCH (09:55)
[2019-03-22] MEDS: CARVEDILOL 25 MG TABLET (FP) PO SCH (09:55)
[2019-03-22] MEDS: LOSARTAN POTASSIUM 50 MG TABLET (FP) PO SCH (09:55)
[2019-03-22] MEDS: amLODIPine BESYLATE 10 MG TABLET (FP) PO SCH (09:56)
[2019-03-22] MEDS: RANITIDINE HCL 150 MG TABLET (FP) PO SCH (09:56)
[2019-03-22] MEDS: HEPARIN NA (PORCINE) 5,000 UNITS/ML 1ML VIAL SQ SCH (09:56)
[2019-03-22] MEDS: PANTOPRAZOLE 20 MG TABLET (FP) PO SCH (09:56)
[2019-03-22] MEDS: hydrALAZINE HCL 50 MG TABLET (FP) PO SCH (09:56)
[2019-03-22] MEDS: cloNIDine HCL 0.1 MG TABLET PO SCH (09:57)
--- NOTE | 2019-03-22 17:06 | DS ---
Physical Examination Vital Signs: Vital Signs Temperature 96.7 F L 03/22/19 15:11 Pulse Rate 69 03/22/19 15:11 Respiratory Rate 18 03/22/19 15:11 Blood Pressure 111/72 03/22/19 15:11 O2 Sat by Pulse Oximetry (%) 98 03/22/19 09:00 Constitutional: Yes: No Distress HENT: Yes: Atraumatic Neck: Yes: Supple Cardiovascular: Yes: Regular Rate and Rhythm Respiratory: Yes: CTA Bilaterally Gastrointestinal: Yes: Normal Bowel Sounds Extremities: Yes: WNL Edema: No Peripheral Pulses WNL: Yes Neurological: Yes: Alert, Oriented Labs: CBC, BMP 03/19/19 06:00 03/21/19 06:30 Discharge Summary Reason For Visit: PANCREATITIS Current Active Problems Abdominal pain (Acute) BPH (benign prostatic hyperplasia) (Acute) HTN (hypertension) (Acute) Pancreatitis (Acute) Condition: Stable - Instructions Diet, Activity, Other Instructions: FOLLOW UP WITH GI DOCTOR DR YESSY DEE IN 2 WEEKS Referrals: Rupesh Dee DO [Staff Physician] - Paula Snyder DO [Staff Physician] - - Home Medications Comprehensive Discharge Medication List: Ambulatory Orders Amlodipine Besylate 10 mg PO DAILY 05/28/18 Carvedilol 25 mg PO DAILY 05/28/18 Clonidine HCl 0.1 mg PO DAILY 05/28/18 Hydralazine HCl 50 mg PO BID 05/28/18 Losartan Potassium 100 mg PO DAILY 05/28/18 Tamsulosin HCl 0.4 mg PO DAILY 05/28/18 protonix 20 po daily pr home fu gi as out patient
[2019-03-22 17:08] VITALS: BP 137/82; PULSE 61; TEMP 98.1
--- NOTE | 2019-03-22 18:01 | PN.GI ---
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 and otherwise unrevealing MRI revealed renal cysts and was otherwise unrevealing - Objective Vital Signs: Vital Signs Temperature 98.1 F 03/22/19 17:06 Pulse Rate 61 03/22/19 17:06 Respiratory Rate 18 03/22/19 17:06 Blood Pressure 137/82 03/22/19 17:06 O2 Sat by Pulse Oximetry (%) 98 03/22/19 09:00 Constitutional: Calm Eyes: No: Sclera Icterus HENT: Yes: Other (Improved appearance of white coated tongue) Cardiovascular: Yes: Regular Rate and Rhythm Respiratory: Yes: CTA Bilaterally Gastrointestinal Inspection: No: Distention ...Auscultate: Yes: Normoactive Bowel Sounds ...Palpate: No: Tenderness Edema: No (No LE edema) Neurological: Yes: Alert Labs: CBC, BMP 03/19/19 06:00 03/21/19 06:30 Problem List - Problems (1) Abdominal pain Assessment/Plan: Resolved: tolerating PO currently Continue Protonix 20mg once daily Gave Mr. Mckee my card and advised that he follow-up in office in 2 weeks Code(s): R10.9 - UNSPECIFIED ABDOMINAL PAIN
== END 2019-03-22 18:42 | disposition home or self-care (01) | DRG 439 ==
LOC: JER 09:10 → JERBED 14:40 → J8W 15:26 → OBSVTOIN 19:56
PROVIDERS: ADMIT Internal Medicine; ATTEND Internal Medicine
DX: K85.80 Other acute pancreatitis without necrosis or infection (principal); B37.0 Candidal stomatitis; J90 Pleural effusion, not elsewhere classified; I10 Essential (primary) hypertension; E11.9 Type 2 diabetes mellitus without complications; R10.9 Unspecified abdominal pain; K59.00 Constipation, unspecified; N40.0 Benign prostatic hyperplasia without lower urinary tract symptoms; N28.1 Cyst of kidney, acquired; K14.6 Glossodynia; M54.2 Cervicalgia; Z85.89 Personal history of malignant neoplasm of other organs and systems
CPT/HCPCS: 36415; 71045-TC-FY; 72125-TC; 74176-TC; 74181-TC; 74240-TC-FY; 80053; 82150; 82550; 82962; 83690; 83735; 84484; 85025; 86593; 93005; 93010; 99282-25; G0378; J0735; J1644; J7030

== ENCOUNTER 2020-10-25 10:48 | Inpatient (IN) | payer MEDICARE, OTHER ==
[2020-10-25] MEDS ORDERED: LACTATED RINGERS SOLUTION 1,000 ML IV STA ×2 (11:30)
[2020-10-25 12:33] LABS: BASO % 0.9 % (0-2.0); EOS % 0.6 % (0-4.5); HEMATOCRIT 38.3 % (35.4-49); HEMOGLOBIN 12.5 GM/dL (11.7-16.9); LYMPH % 13.5 % (8-40); MCHC 32.7 g/dl (32.0-35.9); MEAN CELL VOLUME 98.1 fl (80-96); MEAN PLT VOLUME 9.1 fl (7.5-11.1); MONO % 11.1 % (3.8-10.2); NEUT % 73.9 % (42.8-82.8); PLATELET COUNT 189 K/MM3 (134-434); RBC 3.91 M/mm3 (4.00-5.60); RDW 13.6 % (11.9-15.9); WHITE BLOOD COUNT 7.8 K/mm3 (4.0-10.0)
[2020-10-25 12:39] LABS: VENOUS BASE EXCESS -1.6 mmol/L (-2-2); VENOUS O2 SATURATION 37.6 % (70-80); VENOUS PCO2 41.6 mmHg (38-52); VENOUS PH 7.372 (7.310-7.410)
[2020-10-25 12:47] LABS: INR 1.03 (0.83-1.09); PROTHROMBIN TIME (PATIENT) 12.5 SEC (9.7-13.0)
[2020-10-25 12:50] LABS: ACTIVATED PTT 27.5 SECONDS (25.2-36.5)
[2020-10-25 12:57] LABS: CHLORIDE 103 mmol/L (98-107); SODIUM 135 mmol/L (136-145)
[2020-10-25 12:59] LABS: CALCIUM 8.1 mg/dL (8.5-10.1)
[2020-10-25 13:00] LABS: ANION GAP 10 MMOL/L (8-16); BLOOD UREA NITROGEN 45.8 mg/dL (7-18); CO2 22 mmol/L (21-32); GLUCOSE,RANDOM 101 mg/dL (74-106)
[2020-10-25 13:02] LABS: BILIRUBIN,DIRECT 0.8 mg/dL (0.0-0.2)
[2020-10-25 13:03] LABS: CREATININE 1.9 mg/dL (0.55-1.3); SGOT/AST 61 U/L (15-37); SGPT/ALT 79 U/L (13-61)
[2020-10-25 13:04] LABS: BILIRUBIN,TOTAL 1.5 mg/dL (0.2-1)
[2020-10-25 13:06] LABS: ALK PHOS 65 U/L (45-117)
[2020-10-25] MEDS ORDERED: ENOXAPARIN NA (PORCINE) 40 MG/0.4 ML DISP.SYRIN SQ ONE ×2 (13:14→13:33)
[2020-10-25 15:07] LABS: LDH 401 U/L (87-246)
[2020-10-25] MEDS ORDERED: DEXAMETHASONE SOD PHOSPHATE 10 MG/1 ML VIAL IVPUSH ONE (16:34)
[2020-10-25] MEDS ORDERED: DEXAMETHASONE SOD PHOSPHATE 4 MG/1 ML VIAL ONE (16:38)
[2020-10-25] MEDS: CEFTRIAXONE 1 GM in DEXTROSE 5%-WATER - 50 ML IVPB SCH (17:05)
[2020-10-25] MEDS ORDERED: AZITHROMYCIN IVPB 500 MG/250 ML BAG IVPB ONE (17:09)
[2020-10-25] MEDS ORDERED: CEFTRIAXONE 1 GM/50 ML BAG ONE (17:09)
[2020-10-25] MEDS: AZITHROMYCIN IVPB 500 MG/250 ML BAG IVPB SCH (17:19)
[2020-10-25 17:38] LABS: EPI CELLS 6 /uL (0-25.1); HYALINE CASTS 0 /uL (0-3.1); URINE APPEARANCE CLEAR; URINE BACTERIA 3 /uL (0-1359); URINE BILIRUBIN NEGATIVE (NEGATIVE); URINE COLOR DK YELLOW; URINE GLUCOSE (UA) NEGATIVE (NEGATIVE); URINE KETONE TRACE (NEGATIVE); URINE LEUK ESTERASE NEGATIVE (NEGATIVE); URINE NITRITE NEGATIVE (NEGATIVE); URINE PROTEIN 1+ (NEGATIVE); URINE RBC 8 /uL (0-23.9); URINE WBC 6 /uL (0-25.8)
[2020-10-26] MEDS ORDERED: HEPARIN NA (PORCINE) 5,000 UNITS/ML 1ML VIAL ONE ×2 (00:58→05:58)
[2020-10-26] MEDS: INSULIN SLIDING SCALE (NOVOLOG) 1 VIAL SQ SCH ×5 (01:34→21:38)
[2020-10-26] MEDS: HEPARIN NA (PORCINE) 5,000 UNITS/ML 1ML VIAL SQ SCH ×2 (01:34→06:02)
[2020-10-26] MEDS ORDERED: ACETAMINOPHEN 325 MG TABLET (FP) PO PRN (04:08)
[2020-10-26] MEDS ORDERED: SODIUM CHLORIDE 0.45% 1,000 ML IV SCH (04:30)
[2020-10-26 08:21] LABS: HEMATOCRIT 34.9 % (35.4-49); HEMOGLOBIN 11.2 GM/dL (11.7-16.9); MCH 31.2 pg (25.7-33.7); MCHC 32.2 g/dl (32.0-35.9); MEAN CELL VOLUME 96.7 fl (80-96); MEAN PLT VOLUME 8.8 fl (7.5-11.1); PLATELET COUNT 203 K/MM3 (134-434); RBC 3.61 M/mm3 (4.00-5.60); RDW 13.1 % (11.9-15.9); WHITE BLOOD COUNT 4.6 K/mm3 (4.0-10.0)
[2020-10-26 08:28] LABS: INR 1.08 (0.83-1.09); PROTHROMBIN TIME (PATIENT) 13.2 SEC (9.7-13.0)
[2020-10-26] MEDS ORDERED: TAMSULOSIN HCL 0.4 MG CAP PO SCH (08:30)
[2020-10-26 08:54] LABS: CALCIUM 7.9 mg/dL (8.5-10.1); PHOSPHOROUS 4.8 mg/dL (2.5-4.9)
[2020-10-26 08:55] LABS: ALBUMIN 2.5 g/dl (3.4-5.0); BLOOD UREA NITROGEN 36.9 mg/dL (7-18)
[2020-10-26 08:56] LABS: TOT PROT 6.2 g/dl (6.4-8.2)
[2020-10-26 08:58] LABS: CREATININE 1.4 mg/dL (0.55-1.3)
[2020-10-26 09:05] LABS: MAGNESIUM 2.5 mg/dL (1.8-2.4)
[2020-10-26] MEDS ORDERED: CARVEDILOL 25 MG TABLET (FP) PO SCH (10:00)
[2020-10-26] MEDS ORDERED: ZINC SULFATE 220 MG CAPSULE (FP) ONE (10:14)
[2020-10-26] MEDS ORDERED: ASCORBIC ACID 500 MG TABLET (FP) ONE (10:14)
[2020-10-26] MEDS ORDERED: PANTOPRAZOLE 40 MG TABLET ONE (10:14)
[2020-10-26] MEDS ORDERED: CEFTRIAXONE 1 GM/50 ML BAG ONE (10:15)
[2020-10-26] MEDS ORDERED: DEXAMETHASONE SOD PHOSPHATE 4 MG/1 ML VIAL ONE (10:15)
[2020-10-26] MEDS ORDERED: AZITHROMYCIN IVPB 500 MG/250 ML BAG IVPB ONE (10:15)
[2020-10-26] MEDS ORDERED: CARVEDILOL 12.5 MG TABLET (FP) ONE (10:17)
[2020-10-26] MEDS: CEFTRIAXONE 1 GM in DEXTROSE 5%-WATER - 50 ML IVPB SCH (10:19)
[2020-10-26] MEDS: ASCORBIC ACID 500 MG TABLET (FP) PO SCH ×2 (10:21→21:40)
[2020-10-26] MEDS: PANTOPRAZOLE 40 MG TABLET PO SCH (10:21)
[2020-10-26] MEDS: DEXAMETHASONE SOD PHOSPHATE 4 MG/1 ML VIAL IVPUSH SCH (10:21)
[2020-10-26] MEDS: ZINC SULFATE 220 MG CAPSULE (FP) PO SCH (10:21)
[2020-10-26] MEDS: CARVEDILOL 25 MG TABLET (FP) PO SCH ×2 (10:21→21:39)
[2020-10-26] MEDS ORDERED: PT OWN MED DRAWER 7, Y5N ONE (10:53)
[2020-10-26] MEDS: AZITHROMYCIN IVPB 500 MG/250 ML BAG IVPB SCH (11:02)
[2020-10-26] MEDS: OSELTAMIVIR PHOSPHATE 30 MG CAPSULE PO SCH ×2 (12:54→23:33)
[2020-10-26] MEDS ORDERED: REMDESIVIR 200 MG in SODIUM CHLORIDE 210 ML IVPB ONE (15:00)
[2020-10-26] MEDS ORDERED: LACTATED RINGERS SOLUTION 1,000 ML/1,000 ML INFUS.BAG IV SCH (15:45)
[2020-10-26 16:32] VITALS: BMI 27.1
[2020-10-26] MEDS ORDERED: INSULIN (NOVOLOG) ASPART 100 UNITS/ML 10ML VIAL ONE (21:32)
[2020-10-26] MEDS: APIXABAN 2.5 MG TABLET PO SCH (21:40)
[2020-10-27] MEDS: INSULIN SLIDING SCALE (NOVOLOG) 1 VIAL SQ SCH ×4 (07:09→21:59)
[2020-10-27 09:21] LABS: BASO % 0.3 % (0-2.0); HEMATOCRIT 34.5 % (35.4-49); HEMOGLOBIN 11.2 GM/dL (11.7-16.9); LYMPH % 14.1 % (8-40); MCH 31.1 pg (25.7-33.7); MCHC 32.5 g/dl (32.0-35.9); MEAN CELL VOLUME 95.6 fl (80-96); MEAN PLT VOLUME 8.4 fl (7.5-11.1); MONO % 13.1 % (3.8-10.2); NEUT % 72.5 % (42.8-82.8); PLATELET COUNT 236 K/MM3 (134-434); RBC 3.61 M/mm3 (4.00-5.60); RDW 13.1 % (11.9-15.9); WHITE BLOOD COUNT 8.4 K/mm3 (4.0-10.0)
[2020-10-27] MEDS: DEXAMETHASONE SOD PHOSPHATE 4 MG/1 ML VIAL IVPUSH SCH (09:21)
[2020-10-27] MEDS: CARVEDILOL 25 MG TABLET (FP) PO SCH ×2 (09:21→21:59)
[2020-10-27] MEDS: APIXABAN 2.5 MG TABLET PO SCH (09:21)
[2020-10-27] MEDS: PANTOPRAZOLE 40 MG TABLET PO SCH (09:21)
[2020-10-27] MEDS: ASCORBIC ACID 500 MG TABLET (FP) PO SCH ×2 (09:21→21:52)
[2020-10-27] MEDS: ZINC SULFATE 220 MG CAPSULE (FP) PO SCH (09:21)
[2020-10-27] MEDS ORDERED: PT OWN MED DRAWER 7, Y5N ONE ×2 (09:25→21:31)
[2020-10-27] MEDS: OSELTAMIVIR PHOSPHATE 30 MG CAPSULE PO SCH ×2 (09:27→21:52)
[2020-10-27 09:57] LABS: CALCIUM 8.2 mg/dL (8.5-10.1)
[2020-10-27 09:59] LABS: ALBUMIN 2.6 g/dl (3.4-5.0)
[2020-10-27 10:00] LABS: BLOOD UREA NITROGEN 27.1 mg/dL (7-18)
[2020-10-27 10:01] LABS: MAGNESIUM 2.1 mg/dL (1.8-2.4)
[2020-10-27 10:03] LABS: CREATININE 1.2 mg/dL (0.55-1.3); PHOSPHOROUS 2.8 mg/dL (2.5-4.9)
[2020-10-27 10:04] LABS: BILIRUBIN,TOTAL 1.1 mg/dL (0.2-1); TOT PROT 6.1 g/dl (6.4-8.2)
[2020-10-27] MEDS ORDERED: APIXABAN 2.5 MG TABLET PO SCH (11:01)
[2020-10-27] MEDS: REMDESIVIR 100 MG in SODIUM CHLORIDE 230 ML IVPB SCH (18:14)
[2020-10-27] MEDS ORDERED: INSULIN (NOVOLOG) ASPART 100 UNITS/ML 10ML VIAL ONE (21:30)
[2020-10-27] MEDS: ATORVASTATIN CA 10 MG TABLET (FP) PO SCH (21:52)
[2020-10-27] MEDS: APIXABAN 5 MG TABLET PO SCH (21:52)
[2020-10-28] MEDS: INSULIN SLIDING SCALE (NOVOLOG) 1 VIAL SQ SCH ×4 (06:13→22:19)
[2020-10-28 08:27] LABS: BASO % 0.1 % (0-2.0); HEMATOCRIT 34.9 % (35.4-49); HEMOGLOBIN 11.6 GM/dL (11.7-16.9); LYMPH % 13.4 % (8-40); MCH 31.8 pg (25.7-33.7); MCHC 33.1 g/dl (32.0-35.9); MEAN CELL VOLUME 95.9 fl (80-96); MEAN PLT VOLUME 8.5 fl (7.5-11.1); MONO % 12.5 % (3.8-10.2); PLATELET COUNT 254 K/MM3 (134-434); RBC 3.64 M/mm3 (4.00-5.60); RDW 13.2 % (11.9-15.9); WHITE BLOOD COUNT 8.5 K/mm3 (4.0-10.0)
[2020-10-28 08:52] LABS: CALCIUM 8.2 mg/dL (8.5-10.1)
[2020-10-28 08:53] LABS: CREATININE 1.2 mg/dL (0.55-1.3); MAGNESIUM 2.1 mg/dL (1.8-2.4)
[2020-10-28 08:54] LABS: ALBUMIN 2.6 g/dl (3.4-5.0)
[2020-10-28 08:55] LABS: BILIRUBIN,TOTAL 0.8 mg/dL (0.2-1); TOT PROT 6.2 g/dl (6.4-8.2)
[2020-10-28 08:56] LABS: PHOSPHOROUS 3.4 mg/dL (2.5-4.9)
[2020-10-28] MEDS: PANTOPRAZOLE 40 MG TABLET PO SCH (11:04)
[2020-10-28] MEDS: ZINC SULFATE 220 MG CAPSULE (FP) PO SCH (11:04)
[2020-10-28] MEDS: CHOLECALCIFEROL (VIT D3) 1,000 UNIT (25 MCG) TABLET PO SCH (11:04)
[2020-10-28] MEDS: CARVEDILOL 25 MG TABLET (FP) PO SCH ×2 (11:04→22:19)
[2020-10-28] MEDS: ASCORBIC ACID 500 MG TABLET (FP) PO SCH ×2 (11:04→22:19)
[2020-10-28] MEDS: APIXABAN 5 MG TABLET PO SCH ×2 (11:04→22:19)
[2020-10-28] MEDS: DEXAMETHASONE SOD PHOSPHATE 4 MG/1 ML VIAL IVPUSH SCH (11:04)
[2020-10-28] MEDS: OSELTAMIVIR PHOSPHATE 30 MG CAPSULE PO SCH ×2 (11:05→22:19)
[2020-10-28] MEDS ORDERED: PT OWN MED DRAWER 7, Y5N ONE ×2 (17:04→21:53)
[2020-10-28] MEDS: REMDESIVIR 100 MG in SODIUM CHLORIDE 230 ML IVPB SCH (18:46)
[2020-10-28] MEDS: ATORVASTATIN CA 10 MG TABLET (FP) PO SCH (22:19)
[2020-10-29] MEDS: INSULIN SLIDING SCALE (NOVOLOG) 1 VIAL SQ SCH ×4 (06:11→21:18)
[2020-10-29 09:10] LABS: BASO % 0.3 % (0-2.0); HEMATOCRIT 36.3 % (35.4-49); HEMOGLOBIN 12.3 GM/dL (11.7-16.9); LYMPH % 16.6 % (8-40); MCH 32.2 pg (25.7-33.7); MCHC 33.8 g/dl (32.0-35.9); MEAN CELL VOLUME 95.3 fl (80-96); MEAN PLT VOLUME 8.6 fl (7.5-11.1); MONO % 14.3 % (3.8-10.2); NEUT % 68.8 % (42.8-82.8); PLATELET COUNT 276 K/MM3 (134-434); RBC 3.81 M/mm3 (4.00-5.60); RDW 13.1 % (11.9-15.9); WHITE BLOOD COUNT 8.4 K/mm3 (4.0-10.0)
[2020-10-29 09:29] LABS: CALCIUM 8.3 mg/dL (8.5-10.1)
[2020-10-29 09:30] LABS: ALBUMIN 2.8 g/dl (3.4-5.0); BLOOD UREA NITROGEN 25.4 mg/dL (7-18); MAGNESIUM 2.2 mg/dL (1.8-2.4)
[2020-10-29 09:33] LABS: CREATININE 1.3 mg/dL (0.55-1.3); PHOSPHOROUS 3.9 mg/dL (2.5-4.9)
[2020-10-29 09:35] LABS: BILIRUBIN,TOTAL 0.8 mg/dL (0.2-1); TOT PROT 6.4 g/dl (6.4-8.2)
[2020-10-29] MEDS: PANTOPRAZOLE 40 MG TABLET PO SCH (09:39)
[2020-10-29] MEDS: ASCORBIC ACID 500 MG TABLET (FP) PO SCH ×2 (09:39→21:09)
[2020-10-29] MEDS: ZINC SULFATE 220 MG CAPSULE (FP) PO SCH (09:39)
[2020-10-29] MEDS: DEXAMETHASONE SOD PHOSPHATE 4 MG/1 ML VIAL IVPUSH SCH (09:39)
[2020-10-29] MEDS: CHOLECALCIFEROL (VIT D3) 1,000 UNIT (25 MCG) TABLET PO SCH (09:39)
[2020-10-29] MEDS: CARVEDILOL 25 MG TABLET (FP) PO SCH ×2 (09:39→21:08)
[2020-10-29] MEDS: APIXABAN 5 MG TABLET PO SCH ×2 (09:39→21:09)
[2020-10-29] MEDS: REMDESIVIR 100 MG in SODIUM CHLORIDE 230 ML IVPB SCH (18:23)
[2020-10-29] MEDS: ATORVASTATIN CA 10 MG TABLET (FP) PO SCH (21:09)
[2020-10-30] MEDS: INSULIN SLIDING SCALE (NOVOLOG) 1 VIAL SQ SCH ×2 (06:45→10:47)
[2020-10-30 09:10] LABS: BASO % 0.5 % (0-2.0); HEMOGLOBIN 12.5 GM/dL (11.7-16.9); LYMPH % 13.9 % (8-40); MEAN PLT VOLUME 8.7 fl (7.5-11.1); MONO % 10.1 % (3.8-10.2); NEUT % 75.5 % (42.8-82.8); PLATELET COUNT 272 K/MM3 (134-434); RBC 3.92 M/mm3 (4.00-5.60); RDW 13.1 % (11.9-15.9); WHITE BLOOD COUNT 11.2 K/mm3 (4.0-10.0)
[2020-10-30] MEDS: PANTOPRAZOLE 40 MG TABLET PO SCH (09:47)
[2020-10-30] MEDS: CARVEDILOL 25 MG TABLET (FP) PO SCH (09:47)
[2020-10-30] MEDS: ZINC SULFATE 220 MG CAPSULE (FP) PO SCH (09:47)
[2020-10-30] MEDS: APIXABAN 5 MG TABLET PO SCH (09:47)
[2020-10-30] MEDS: CHOLECALCIFEROL (VIT D3) 1,000 UNIT (25 MCG) TABLET PO SCH (09:47)
[2020-10-30] MEDS: ASCORBIC ACID 500 MG TABLET (FP) PO SCH (09:47)
[2020-10-30] MEDS: DEXAMETHASONE SOD PHOSPHATE 4 MG/1 ML VIAL IVPUSH SCH (09:47)
[2020-10-30 10:44] VITALS: BP 149/63; PULSE 61; TEMP 98.2
[2020-10-30 10:53] LABS: ALBUMIN 2.9 g/dl (3.4-5.0); BLOOD UREA NITROGEN 30.3 mg/dL (7-18); CALCIUM 8.3 mg/dL (8.5-10.1); MAGNESIUM 2.1 mg/dL (1.8-2.4)
[2020-10-30 10:55] LABS: CREATININE 1.3 mg/dL (0.55-1.3)
[2020-10-30 10:56] LABS: BILIRUBIN,TOTAL 0.7 mg/dL (0.2-1); PHOSPHOROUS 4.2 mg/dL (2.5-4.9)
[2020-10-30 10:57] LABS: TOT PROT 6.5 g/dl (6.4-8.2)
[2020-10-30 11:56] LABS: ANISOCYTOSIS 0; MACROCYTOSIS 0; PLATELET ESTIMATE NORMAL
== END 2020-10-30 11:46 | disposition home health service (06) | DRG 177 ==
LOC: JER 10:48 → JERBED 15:17 → J5S 10-26 16:31
PROVIDERS: ADMIT Family Medicine; ATTEND Internal Medicine
PROC: XW13325 Transfusion of Convalescent Plasma (Nonautologous) into Peripheral Vein, Percutaneous Approach, New Technology Group 5 (ICD-10-PCS; principal; 2020-10-26)
PROC: XW033E5 Introduction of Remdesivir Anti-infective into Peripheral Vein, Percutaneous Approach, New Technology Group 5 (ICD-10-PCS; 2020-10-26)
PROC: 8E0ZXY6 Isolation (ICD-10-PCS; 2020-10-26)
DX: U07.1 COVID-19 (principal); J12.89 Other viral pneumonia; J96.01 Acute respiratory failure with hypoxia; N17.9 Acute kidney failure, unspecified; E87.1 Hypo-osmolality and hyponatremia; E03.9 Hypothyroidism, unspecified; N40.0 Benign prostatic hyperplasia without lower urinary tract symptoms; J10.1 Influenza due to other identified influenza virus with other respiratory manifestations; I10 Essential (primary) hypertension; E86.9 Volume depletion, unspecified; E78.5 Hyperlipidemia, unspecified; E86.0 Dehydration; I12.9 Hypertensive chronic kidney disease with stage 1 through stage 4 chronic kidney disease, or unspecified chronic kidney disease; E11.22 Type 2 diabetes mellitus with diabetic chronic kidney disease; N18.9 Chronic kidney disease, unspecified; Z85.46 Personal history of malignant neoplasm of prostate; Z20.828 Contact with and (suspected) exposure to other viral communicable diseases
CPT/HCPCS: 36415; 36430; 71045-TC-FY; 76705-TC; 76775-TC; 80053; 80061; 81003; 82248; 82550; 82553; 82728; 82803; 82962; 83036; 83605; 83615; 83721; 83735; 84100; 84443; 84484; 85025; 85027; 85379; 85610; 85730; 86140; 86769; 86850; 86900; 86901; 87040; 87086; 87804; 87899; 93005; 93010; 93970-TC; 94010; 99285-25; C9399; C9803; J1100; J1644; P9017; U0003

== ENCOUNTER 2021-04-12 09:11 | Emergency (ER) | payer MEDICARE, OTHER ==
[2021-04-12 09:22] VITALS: BMI 26.6
[2021-04-12] MEDS ORDERED: LIDOCAINE 5% TOPICAL PATCH TP ONE (09:50)
[2021-04-12] MEDS ORDERED: LIDOCAINE 5% TOPICAL PATCH ONE (10:22)
[2021-04-12 11:13] LABS: URINE APPEARANCE CLEAR; URINE BILIRUBIN NEGATIVE (NEGATIVE); URINE COLOR YELLOW; URINE GLUCOSE (UA) NEGATIVE (NEGATIVE); URINE KETONE TRACE (NEGATIVE); URINE LEUK ESTERASE NEGATIVE (NEGATIVE); URINE NITRITE NEGATIVE (NEGATIVE); URINE PROTEIN NEGATIVE (NEGATIVE); URINE UROBILINOGEN 0.2 mg/dL (0.2-1.0)
[2021-04-12 11:49] LABS: BASO % 0.7 % (0-2.0); EOS % 2.8 % (0-4.5); HEMATOCRIT 37.3 % (35.4-49); HEMOGLOBIN 12.6 GM/dL (11.7-16.9); LYMPH % 26.5 % (8-40); MCH 32.9 pg (25.7-33.7); MCHC 33.9 g/dl (32.0-35.9); MEAN PLT VOLUME 9.1 fl (7.5-11.1); MONO % 11.9 % (3.8-10.2); NEUT % 58.1 % (42.8-82.8); PLATELET COUNT 123 K/MM3 (134-434); RBC 3.85 M/mm3 (4.00-5.60); RDW 13.4 % (11.9-15.9); WHITE BLOOD COUNT 5.9 K/mm3 (4.0-10.0)
[2021-04-12 12:07] LABS: CHLORIDE 110 mmol/L (98-107); SODIUM 141 mmol/L (136-145)
[2021-04-12 12:10] LABS: ALBUMIN 3.9 g/dl (3.4-5.0); ANION GAP 7 MMOL/L (8-16); CALCIUM 8.6 mg/dL (8.5-10.1); CO2 24 mmol/L (21-32); GLUCOSE,RANDOM 103 mg/dL (74-106); LIPASE 306 U/L (73-393)
[2021-04-12 12:13] LABS: CREATININE 1.4 mg/dL (0.55-1.3); SGOT/AST 25 U/L (15-37); SGPT/ALT 57 U/L (13-61)
[2021-04-12 12:14] LABS: BILIRUBIN,TOTAL 0.4 mg/dL (0.2-1); TOT PROT 7.3 g/dl (6.4-8.2)
[2021-04-12 12:15] LABS: ALK PHOS 69 U/L (45-117)
[2021-04-12] MEDS ORDERED: IBUPROFEN 400 MG TABLET (FP) PO ONE ×2 (12:27→12:36)
[2021-04-12 13:10] VITALS: BP 159/82; PULSE 67; TEMP 98
[2021-04-12] MEDS ORDERED: LIDOCAINE PATCH REMOVAL MC ONE (22:00)
== END 2021-04-12 13:10 | disposition home or self-care (01) ==
LOC: JER 09:11
DX: M54.5 Low back pain (principal)
CPT/HCPCS: 36415; 80053; 81003; 83690; 84484; 85025; 93005; 93010; 99284-25

== ENCOUNTER 2022-11-09 16:05 | Inpatient (IN) | payer MEDICARE, OTHER ==
[2022-11-09 16:19] VITALS: BMI 25.7
[2022-11-09 17:50] LABS: BASO % 0.8 % (0-2.0); HEMOGLOBIN 12.6 GM/dL (11.7-16.9); LYMPH % 13.5 % (8-40); MCH 31.8 pg (25.7-33.7); MCHC 32.3 g/dl (32.0-35.9); MEAN CELL VOLUME 98.3 fl (80-96); MEAN PLT VOLUME 8.9 fl (7.5-11.1); MONO % 8.8 % (3.8-10.2); NEUT % 75.9 % (42.8-82.8); PLATELET COUNT 134 10^3/uL (134-434); RBC 3.97 M/mm3 (4.00-5.60); RDW 13.2 % (11.9-15.9)
[2022-11-09 18:14] LABS: ALBUMIN 3.3 g/dl (3.4-5.0); BLOOD UREA NITROGEN 24.8 mg/dL (7-18); CALCIUM 8.9 mg/dL (8.5-10.1)
[2022-11-09 18:17] LABS: CREATININE 1.4 mg/dL (0.55-1.3)
[2022-11-09 18:19] LABS: BILIRUBIN,TOTAL 0.3 mg/dL (0.2-1); TOT PROT 6.6 g/dl (6.4-8.2)
[2022-11-09 18:55] LABS: EPI CELLS 7 /uL (0-25.1); HYALINE CASTS 1 /uL (0-3.1); PH,URINE 6.5 (5.0-8.0); URINE APPEARANCE CLEAR; URINE BACTERIA 5 /uL (0-1359); URINE BILIRUBIN NEGATIVE (NEGATIVE); URINE COLOR YELLOW; URINE GLUCOSE (UA) NEGATIVE (NEGATIVE); URINE KETONE NEGATIVE (NEGATIVE); URINE LEUK ESTERASE TRACE (NEGATIVE); URINE NITRITE NEGATIVE (NEGATIVE); URINE PROTEIN TRACE (NEGATIVE); URINE RBC 11 /uL (0-23.9); URINE UROBILINOGEN 0.2 mg/dL (0.2-1.0); URINE WBC 24 /uL (0-25.8)
[2022-11-09] MEDS ORDERED: SODIUM CHLORIDE 0.9% 500 ML INFUS.BAG IV ONE (19:15)
[2022-11-09] MEDS ORDERED: PATIENT'S OWN MEDICATION (NON-FORMULARY) (Enzalutamide [Xtandi] 40 MG Capsule) PO SCH (21:30)
[2022-11-09] MEDS ORDERED: HEPARIN NA (PORCINE) 5,000 UNITS/ML 1ML VIAL ONE (23:47)
[2022-11-09] MEDS ORDERED: TAMSULOSIN HCL 0.4 MG CAP ONE (23:47)
[2022-11-09] MEDS ORDERED: ATORVASTATIN CA 10 MG TABLET (FP) ONE (23:47)
[2022-11-09] MEDS: TAMSULOSIN HCL 0.4 MG CAP PO SCH (23:52)
[2022-11-09] MEDS: ATORVASTATIN CA 10 MG TABLET (FP) PO SCH (23:52)
[2022-11-09] MEDS: HEPARIN NA (PORCINE) 5,000 UNITS/ML 1ML VIAL SQ SCH (23:52)
[2022-11-09] MEDS: INSULIN SLIDING SCALE (NOVOLOG) 1 VIAL SQ SCH (23:55)
[2022-11-09] MEDS ORDERED: DEXTROSE 50%-WATER - 25 GM/50 ML VIAL IVPUSH ONE (23:56)
[2022-11-09] MEDS ORDERED: DEXTROSE 50%-WATER 25 GM/50 ML DISP.SYRIN ONE (23:58)
[2022-11-10] MEDS: HEPARIN NA (PORCINE) 5,000 UNITS/ML 1ML VIAL SQ SCH ×3 (06:35→21:14)
[2022-11-10] MEDS: INSULIN SLIDING SCALE (NOVOLOG) 1 VIAL SQ SCH ×4 (06:35→21:14)
[2022-11-10 07:27] LABS: HEMATOCRIT 36.1 % (35.4-49); HEMOGLOBIN 11.8 GM/dL (11.7-16.9); MCH 31.7 pg (25.7-33.7); MCHC 32.7 g/dl (32.0-35.9); MEAN CELL VOLUME 97.1 fl (80-96); MEAN PLT VOLUME 9.4 fl (7.5-11.1); PLATELET COUNT 134 10^3/uL (134-434); RBC 3.72 M/mm3 (4.00-5.60); RDW 12.9 % (11.9-15.9); WHITE BLOOD COUNT 8.1 K/mm3 (4.0-10.0)
[2022-11-10 08:01] LABS: ALBUMIN 3.1 g/dl (3.4-5.0); BLOOD UREA NITROGEN 22.7 mg/dL (7-18); CALCIUM 8.9 mg/dL (8.5-10.1)
[2022-11-10 08:06] LABS: BILIRUBIN,TOTAL 0.4 mg/dL (0.2-1)
[2022-11-10] MEDS: amLODIPine BESYLATE 10 MG TABLET (FP) PO SCH (10:06)
[2022-11-10] MEDS: TAMSULOSIN HCL 0.4 MG CAP PO SCH ×2 (10:06→21:14)
[2022-11-10] MEDS: MEMANTINE HCL 10 MG TABLET (FP) PO SCH ×2 (12:51→21:13)
[2022-11-10] MEDS ORDERED: INSULIN SLIDING SCALE (NOVOLOG) 1 VIAL SQ ONE (21:11)
[2022-11-10] MEDS: ATORVASTATIN CA 10 MG TABLET (FP) PO SCH (21:14)
[2022-11-10] MEDS ORDERED: LATANOPROST 0.005% OPHTH SOLN 2.5ML BOTTLE OU SCH (22:00)
[2022-11-11] MEDS: HEPARIN NA (PORCINE) 5,000 UNITS/ML 1ML VIAL SQ SCH ×2 (05:51→14:53)
[2022-11-11] MEDS: INSULIN SLIDING SCALE (NOVOLOG) 1 VIAL SQ SCH ×3 (06:01→17:53)
[2022-11-11] MEDS: amLODIPine BESYLATE 10 MG TABLET (FP) PO SCH (09:40)
[2022-11-11] MEDS: MEMANTINE HCL 10 MG TABLET (FP) PO SCH (09:40)
[2022-11-11] MEDS: TAMSULOSIN HCL 0.4 MG CAP PO SCH (09:40)
[2022-11-11 19:20] VITALS: BP 134/82; PULSE 68; RESP 17; TEMP 98.3
[2022-11-11] MEDS ORDERED: METOPROLOL TARTRATE 25 MG TABLET (FP) PO SCH ×2 (22:00)
== END 2022-11-11 19:45 | disposition home health service (06) | DRG 312 ==
LOC: JER 16:05 → JERBED 19:00 → OBSVTOIN 20:18 → J4S 11-10 01:23
PROVIDERS: ADMIT Internal Medicine; ATTEND Internal Medicine
DX: R55 Syncope and collapse (principal); E03.9 Hypothyroidism, unspecified; E11.649 Type 2 diabetes mellitus with hypoglycemia without coma; E78.5 Hyperlipidemia, unspecified; I10 Essential (primary) hypertension; R07.89 Other chest pain; N40.0 Benign prostatic hyperplasia without lower urinary tract symptoms; H26.9 Unspecified cataract; R00.0 Tachycardia, unspecified; N28.9 Disorder of kidney and ureter, unspecified; Z85.46 Personal history of malignant neoplasm of prostate
CPT/HCPCS: 0241U-QW; 36415; 70450-TC; 71046-TC-FY; 76775-TC; 80053; 80061; 81003; 82550; 82570; 82962; 83036; 83735; 84156; 84443; 84484; 85025; 85027; 87086; 93005; 93010; 93306-TC; 93880-TC; 99285-25; G0378; J1644